=== PATIENT | male | born 1970 | race Caucasian/White ===

== ENCOUNTER 2022-02-18 12:28 | Outpatient (CLI) | payer OTHER, SELFPAY ==
[2022-02-18 18:39] LABS: Hemoglobin A1C 6.9 % (<5.7)
[2022-02-18 18:56] LABS: Alanine Aminotransferase 23 U/L (6-50); Albumin Level 4.6 g/dL (3.5-5.1); Alkaline Phosphatase 87 U/L (38-126); Anion Gap 14 mmol/L (8-16); Aspartate Amino Transferase 28 U/L (17-59); Bilirubin,Total 0.5 mg/dL (0.2-1.3); Blood Urea Nitrogen 14 mg/dL (9-20); Calcium 9.2 mg/dL (8.4-10.2); Carbon Dioxide 25 mmol/L (22-30); Chloride 103 mmol/L (98-107); Cholesterol 182 mg/dL (0-200); Estimated Glomerular Filt Rate > 60; Glucose 152 mg/dL (65-110); HDL Direct 35 mg/dL; Potassium 4.1 mmol/L (3.4-5.0); Sodium 142 mmol/L (137-145); Triglycerides 201 mg/dL (<150)
[2022-02-18 19:07] LABS: LDL Cholesterol Direct 98 mg/dL
[2022-02-18 19:08] LABS: Creatinine Urine 126.1 mg/dL
[2022-02-18 19:20] LABS: Microalbumin Urine Random < 6.0 mg/L (0-16.7)
[2022-02-18 19:21] LABS: MALB Creatinine Ratio < 4.8 mg/g (0-30)
== END 2022-02-18 12:29 | disposition home or self-care (01) ==
PROVIDERS: PCP Emergency Medicine; Visit Provider Emergency Medicine
DX: E66.9 Obesity, unspecified (principal)
CPT/HCPCS: 36415; 80053; 80061; 82043; 83036

== ENCOUNTER → 2022-02-18 12:49 | Outpatient (CLI) | payer OTHER, SELFPAY ==
--- NOTE | ~2022-02-18 | XR_ITS ---
XR knee RT min 4V DATE: 02/18/2022 13:15 INDICATION: Right knee pain TECHNIQUE: Bilateral sunrise and standing AP views. AP and crosstable lateral view of right knee. COMPARISON: None FINDINGS: There is mild suprapatellar knee joint effusion. There is superior pole patellar enthesopathy. There is mild periarticular spurring of the patella. Joint spaces appear relatively preserved at the right knee as well as left knee. No right knee fractu re or dislocation, periosteal reaction or bone destruction, radiopaque intra-articular loose body or chondrocalcinosis is noted. Plate and screws of proximal left tibia for tibial plateau fracture.. IMPRESSION: Mild right knee joint effusion Mild osteoarthritis of right knee Status post ORIF of left tibial plateau fracture Reviewed, dictated and finalized at location A.
--- NOTE | ~2022-02-18 | XR_ITS ---
XR pelvis 1-2V DATE: 02/18/2022 13:16 INDICATION: Bilateral chronic hip pain TECHNIQUE: AP views of pelvis with neutral and frog-lateral position of the hips COMPARISON: None FINDINGS: No pelvic fracture or bone destruction. Normal alignment at the pubic symphysis and sacroil iac joints. There is chondrocalcinosis of the pubic symphysis. Hip joint spaces are symmetric and relatively preserved. IMPRESSION: Chondrocalcinosis of the pubic symphysis Reviewed, dictated and finalized at location A.
--- NOTE | ~2022-02-18 | XR_ITS ---
XR lumbar spine min 4V DATE: 02/18/2022 13:15 INDICATION: Back pain TECHNIQUE: AP, lateral, bilateral oblique and coned lateral lumbosacral views COMPARISON: None FINDINGS: There is mild levoscoliosis. There is mild degenerative disc disease at L1-2, L2-3. Moderately severe degenerative disc disease, especially on the right, at L3-4. Moderate degenerative disc disease at L4-5. No fracture or bone destruction, spondylolysis or spondylolisthesis. The lumbar pedicles are intact. The sacral iliac joints are intact. IMPRESSION: Mild levoscoliosis Multilevel degenerative disc disease, most severe at L3-4 Reviewed, dictated and finalized at location A.
--- NOTE | ~2022-02-18 | XR_ITS ---
XR knee LT min 4V DATE: 02/18/2022 13:16 INDICATION: Left knee pain TECHNIQUE: AP and lateral views COMPARISON: 02/18/2022 right knee including some left knee views FINDINGS: Status post ORIF left tibial plateau fracture by means of plate along the lateral aspect of the proximal tibia with multiple interlocking transverse and oblique screws. Small suprapatellar knee joint effusion is suggested. There is patellar enthesopathy at the patellar tendon and to a greater extent quadriceps tendon inser tion sites. Knee joint spaces are relatively preserved. No recent fracture or dislocation, periosteal reaction or bone destruction. IMPRESSION: Status post ORIF old tibial plateau fracture Small suprapatellar knee joint effusion is suggested Reviewed, dictated and finalized at location A.
== END ==
PROVIDERS: PCP Emergency Medicine; Visit Provider Emergency Medicine
DX: M54.9 Dorsalgia, unspecified (principal); M25.569 Pain in unspecified knee; M25.461 Effusion, right knee; M17.11 Unilateral primary osteoarthritis, right knee; Z98.890 Other specified postprocedural states; M51.36 Other intervertebral disc degeneration, lumbar region; M25.462 Effusion, left knee; M11.252 Other chondrocalcinosis, left hip; M11.251 Other chondrocalcinosis, right hip
CPT/HCPCS: 36415; 72110; 72170; 73564; 80053; 80061; 82043; 83036